=== PATIENT | male | born 1950 | race Caucasian/White ===

== ENCOUNTER → 2018-03-09 | Outpatient (CLI) | payer MEDICARE, BC ==
[~2018-03-09] VITALS: Ht 162.6 cm; Wt 74.1 kg
[~2018-03-09] MED LIST: NAPROSYN500 M1 PO; ZESTORETIC 25 M1 TAB PO
[2018-03-09 08:10] VITALS: BP 153/80
[2018-03-09 08:20] LABS: ALBUMIN 4.6 g/dL (3.5-5.0); POTASSIUM 4.3 mmol/L (3.6-5.0); TOTAL BILIRUBIN 1.4 mg/dL (0.2-1.3); TOTAL PROTEIN 7.5 g/dL (6.3-8.2)
== END ==
LOC: LAB 07:52
PROVIDERS: Family Medicine
DX: Z00.00 Encounter for general adult medical examination without abnormal findings (principal); Z12.5 Encounter for screening for malignant neoplasm of prostate; Z12.12 Encounter for screening for malignant neoplasm of rectum; Z23 Encounter for immunization; I10 Essential (primary) hypertension; R73.02 Impaired glucose tolerance (oral); H61.23 Impacted cerumen, bilateral; Z80.0 Family history of malignant neoplasm of digestive organs; Z87.891 Personal history of nicotine dependence

== ENCOUNTER → 2018-03-20 | Outpatient (CLI) | payer MEDICARE, BC ==
[2018-03-09 08:10] VITALS: BP 153/80
[2018-03-20 20:21] LABS: DIRECT BILIRUBIN 0.4 mg/dL (0.0-0.4); TOTAL BILIRUBIN 1.1 mg/dL (0.2-1.3)
== END ==
LOC: LAB 17:10
PROVIDERS: Family Medicine
DX: E80.6 Other disorders of bilirubin metabolism (principal)

== ENCOUNTER → 2018-03-31 | Outpatient (CLI) | payer MEDICARE, BC ==
[2018-03-09 08:10] VITALS: BP 153/80
== END ==
LOC: CARDREHAB 07:39 → CARDLAB 12:05
DX: I10 Essential (primary) hypertension (principal)
CPT/HCPCS: A9500

== ENCOUNTER 2018-08-04 08:15 | Emergency (ER) | payer MEDICARE, BC ==
[~2018-08-04 08:15] MED LIST changes: +CEPHALEXIN500 M2 PO; +FISH OIL CONCE1 EACH PO
[2018-08-04 09:11] VITALS: BP 144/93
== END 2018-08-04 08:50 | disposition home or self-care (01) ==
LOC: ED 08:15
DX: S69.92XD Unspecified injury of left wrist, hand and finger(s), subsequent encounter (principal)

== ENCOUNTER → 2018-12-12 | Outpatient (CLI) | payer MEDICARE, BC | LOC: LAB 09:10 | DX: R97.20 Elevated prostate specific antigen [PSA] (principal) ==

== ENCOUNTER → 2019-05-24 | Outpatient (CLI) | payer MEDICARE, BC ==
[2019-05-24 07:20] LABS: ALBUMIN 4.4 g/dL (3.4-4.8); POTASSIUM 4.1 mmol/L (3.5-5.1)
[2019-05-24 07:22] LABS: CALCIUM 9.9 mg/dL (8.3-10.5)
[2019-05-24 07:23] LABS: TOTAL PROTEIN 7.2 g/dL (6.2-8.1)
[2019-05-24 07:25] LABS: TOTAL BILIRUBIN 0.9 mg/dL (0.2-1.2)
== END ==
LOC: LAB 07:01
PROVIDERS: Family Medicine
DX: E78.5 Hyperlipidemia, unspecified (principal); I10 Essential (primary) hypertension; R97.20 Elevated prostate specific antigen [PSA]

== ENCOUNTER → 2019-05-30 | Outpatient (CLI) | payer MEDICARE, BC | LOC: LAB 15:45 | DX: Z00.00 Encounter for general adult medical examination without abnormal findings (principal); Z23 Encounter for immunization; I10 Essential (primary) hypertension; H61.21 Impacted cerumen, right ear; D22.5 Melanocytic nevi of trunk; R73.02 Impaired glucose tolerance (oral) ==

== ENCOUNTER → 2020-06-06 | Outpatient (CLI) | payer MEDICARE, BC ==
[2020-06-06 08:34] LABS: POTASSIUM 3.9 mmol/L (3.5-5.1)
[2020-06-06 08:35] LABS: ALBUMIN 4.3 g/dL (3.4-4.8)
[2020-06-06 08:36] LABS: CALCIUM 9.4 mg/dL (8.3-10.5)
[2020-06-06 08:37] LABS: TOTAL PROTEIN 7.1 g/dL (6.2-8.1)
[2020-06-06 08:39] LABS: TOTAL BILIRUBIN 1.1 mg/dL (0.2-1.2)
== END ==
LOC: LAB 08:03
PROVIDERS: Family Medicine
DX: E78.00 Pure hypercholesterolemia, unspecified (principal); R73.03 Prediabetes; I10 Essential (primary) hypertension

== ENCOUNTER → 2020-06-13 | Outpatient (CLI) | payer MEDICARE, BC | LOC: LAB 09:28 | DX: Z00.00 Encounter for general adult medical examination without abnormal findings (principal) ==

== ENCOUNTER → 2020-08-11 | Day surgery (SDC) | payer MEDICARE, BC | END | disposition home or self-care (01) | LOC: MSO 07:18 | DX: D12.2 Benign neoplasm of ascending colon (principal); D12.3 Benign neoplasm of transverse colon; I10 Essential (primary) hypertension; Z79.899 Other long term (current) drug therapy; Z79.82 Long term (current) use of aspirin | CPT/HCPCS: 00811; J2704; J7120 ==

== ENCOUNTER → 2020-08-18 | Outpatient (CLI) | payer MEDICARE, BC ==
[2020-08-18 11:37] LABS: MEAN PLATELET VOLUME 9.9 fl (7.4-10.4); RED BLOOD COUNT 4.64 M/mm3 (4.20-5.60); RED CELL DISTRIBUTION WIDTH 12.6 % (11.5-14.5); WHITE BLOOD COUNT 6.8 K/mm3 (4.8-10.8)
[2020-08-18 11:47] LABS: ALBUMIN 4.3 g/dL (3.4-4.8)
[2020-08-18 11:49] LABS: CALCIUM 9.9 mg/dL (8.3-10.5)
[2020-08-18 11:50] LABS: TOTAL PROTEIN 7.5 g/dL (6.2-8.1)
[2020-08-18 11:52] LABS: TOTAL BILIRUBIN 0.9 mg/dL (0.2-1.2)
== END ==
LOC: LAB 11:17
PROVIDERS: Surgery
DX: K63.89 Other specified diseases of intestine (principal)

== ENCOUNTER → 2020-08-19 | Outpatient (CLI) | payer MEDICARE, BC | LOC: RAD 09:47 | DX: K63.89 Other specified diseases of intestine (principal); N40.1 Benign prostatic hyperplasia with lower urinary tract symptoms; N32.0 Bladder-neck obstruction | CPT/HCPCS: Q9967 ==

== ENCOUNTER → 2020-10-01 | Outpatient (CLI) | payer MEDICARE, BC ==
[2020-10-01 08:16] LABS: MEAN PLATELET VOLUME 8.8 fl (7.4-10.4); RED BLOOD COUNT 2.75 M/mm3 (4.20-5.60); RED CELL DISTRIBUTION WIDTH 13.9 % (11.5-14.5)
[2020-10-01 08:38] LABS: POTASSIUM 4.8 mmol/L (3.5-5.1)
[2020-10-01 08:39] LABS: CALCIUM 9.1 mg/dL (8.3-10.5)
== END ==
LOC: LAB 08:02
PROVIDERS: Family Medicine
DX: D50.0 Iron deficiency anemia secondary to blood loss (chronic) (principal); N28.9 Disorder of kidney and ureter, unspecified

== ENCOUNTER → 2020-10-28 | Outpatient (CLI) | payer MEDICARE, BC ==
[2020-10-28 14:27] LABS: HEMATOCRIT 42.1 % (42.0-52.0); HEMOGLOBIN 13.8 g/dL (13.5-18.0); MEAN PLATELET VOLUME 9.6 fl (7.4-10.4); RED BLOOD COUNT 4.2 M/mm3 (4.20-5.60); RED CELL DISTRIBUTION WIDTH 13.3 % (11.5-14.5)
== END ==
LOC: LAB 14:15
PROVIDERS: Family Medicine
DX: D50.0 Iron deficiency anemia secondary to blood loss (chronic) (principal)

== ENCOUNTER → 2021-01-01 | Outpatient (CLI) | payer MEDICARE, BC | LOC: LAB 09:10 | DX: R97.20 Elevated prostate specific antigen [PSA] (principal); R39.12 Poor urinary stream ==

== ENCOUNTER → 2021-01-27 | Outpatient (CLI) | payer MEDICARE, BC ==
[2021-01-27 09:13] LABS: HEMATOCRIT 42.9 % (42.0-52.0); HEMOGLOBIN 14.2 g/dL (13.5-18.0); RED BLOOD COUNT 4.44 M/mm3 (4.20-5.60); WHITE BLOOD COUNT 7.7 K/mm3 (4.8-10.8)
== END ==
LOC: LAB 08:57
PROVIDERS: Family Medicine
DX: Z86.2 Personal history of diseases of the blood and blood-forming organs and certain disorders involving the immune mechanism (principal)

== ENCOUNTER → 2021-02-09 | Outpatient (CLI) | payer MEDICARE, BC ==
[2021-02-09 09:50] LABS: HEMATOCRIT 45.9 % (42.0-52.0); HEMOGLOBIN 15.1 g/dL (13.5-18.0); MEAN PLATELET VOLUME 10.2 fl (7.4-10.4); RED BLOOD COUNT 4.74 M/mm3 (4.20-5.60); RED CELL DISTRIBUTION WIDTH 12.9 % (11.5-14.5); WHITE BLOOD COUNT 6.5 K/mm3 (4.8-10.8)
== END ==
LOC: LAB 09:32
PROVIDERS: Family Medicine
DX: Z86.2 Personal history of diseases of the blood and blood-forming organs and certain disorders involving the immune mechanism (principal)

== ENCOUNTER → 2021-02-12 | Outpatient (CLI) | payer MEDICARE, BC ==
[2021-02-12 10:13] LABS: POTASSIUM 4.7 mmol/L (3.5-5.1)
[2021-02-12 10:14] LABS: CALCIUM 9.8 mg/dL (8.3-10.5)
== END ==
LOC: LAB 09:41
PROVIDERS: Family Medicine
DX: I10 Essential (primary) hypertension (principal)

== ENCOUNTER → 2021-08-18 | Outpatient (CLI) | payer MEDICARE, BC ==
[2021-08-18 08:22] LABS: BASO # 0.03 K/mm3 (0.02-0.10); EOS % 2.1 % (0.0-4.0); HEMATOCRIT 44.6 % (42.0-52.0); HEMOGLOBIN 14.8 g/dL (13.5-18.0); LYMPH# 1.97 K/mm3 (1.50-4.00); MEAN CELL VOLUME 100 fl (78-100); MEAN CORPUSCULAR HEMOGLOBIN 33 pg (27-31); MEAN CORPUSCULAR HGB CONC 33 g/dL (33-37); MEAN PLATELET VOLUME 10.6 fl (7.4-10.4); MONO # 0.57 K/mm3 (0.20-0.80); NEU # 2.09 K/mm3 (1.40-6.50); PLATELET COUNT 238 K/mm3 (130-400); RED BLOOD COUNT 4.45 M/mm3 (4.20-5.60); RED CELL DISTRIBUTION WIDTH 12.3 % (11.5-14.5); WHITE BLOOD COUNT 4.8 K/mm3 (4.8-10.8)
[2021-08-18 08:23] LABS: ALBUMIN 4.2 g/dL (3.4-4.8); CALCIUM 10.1 mg/dL (8.3-10.5); POTASSIUM 5.2 mmol/L (3.5-5.1); TOTAL BILIRUBIN 0.9 mg/dL (0.2-1.2); TOTAL PROTEIN 7.3 g/dL (6.2-8.1)
== END ==
LOC: LAB 07:31
PROVIDERS: Family Medicine
DX: Z00.00 Encounter for general adult medical examination without abnormal findings (principal); Z13.6 Encounter for screening for cardiovascular disorders; C18.7 Malignant neoplasm of sigmoid colon; R73.03 Prediabetes; I10 Essential (primary) hypertension; E78.00 Pure hypercholesterolemia, unspecified

== ENCOUNTER → 2021-12-14 | Outpatient (CLI) | payer MEDICARE, BC ==
[2021-12-14 11:16] LABS: ALBUMIN 4.4 g/dL (3.4-4.8)
[2021-12-14 11:17] LABS: POTASSIUM 4.5 mmol/L (3.5-5.1)
[2021-12-14 11:19] LABS: TOTAL PROTEIN 7.4 g/dL (6.2-8.1)
[2021-12-14 11:21] LABS: TOTAL BILIRUBIN 1.3 mg/dL (0.2-1.2)
== END ==
LOC: LAB 10:39
PROVIDERS: Nurse Practitioner Family
DX: U07.1 COVID-19 (principal)

== ENCOUNTER → 2022-02-17 | Outpatient (CLI) | payer MEDICARE, BC ==
[2022-02-17 09:24] LABS: ALBUMIN 4.3 g/dL (3.4-4.8); POTASSIUM 4.6 mmol/L (3.5-5.1)
[2022-02-17 09:25] LABS: CALCIUM 9.8 mg/dL (8.3-10.5)
[2022-02-17 09:26] LABS: TOTAL PROTEIN 7.4 g/dL (6.2-8.1)
[2022-02-17 09:28] LABS: TOTAL BILIRUBIN 1.8 mg/dL (0.2-1.2)
== END ==
LOC: LAB 09:00
PROVIDERS: Family Medicine
DX: E78.00 Pure hypercholesterolemia, unspecified (principal); E80.6 Other disorders of bilirubin metabolism; R97.20 Elevated prostate specific antigen [PSA]; I10 Essential (primary) hypertension; R73.03 Prediabetes

== ENCOUNTER → 2023-02-18 | Outpatient (CLI) | payer MEDICARE, BC ==
[2023-02-18 08:19] LABS: HEMATOCRIT 44.2 % (42.0-52.0); HEMOGLOBIN 14.8 g/dL (13.5-18.0); MEAN PLATELET VOLUME 9.7 fl (7.4-10.4); RED BLOOD COUNT 4.56 M/mm3 (4.20-5.60); RED CELL DISTRIBUTION WIDTH 12.3 % (11.5-14.5); WHITE BLOOD COUNT 7.2 K/mm3 (4.8-10.8)
[2023-02-18 08:33] LABS: ALBUMIN 4.4 g/dL (3.4-4.8)
[2023-02-18 08:34] LABS: CALCIUM 9.9 mg/dL (8.3-10.5)
[2023-02-18 08:35] LABS: TOTAL PROTEIN 7.6 g/dL (6.2-8.1)
[2023-02-18 08:37] LABS: TOTAL BILIRUBIN 1.5 mg/dL (0.2-1.2)
== END ==
LOC: LAB 08:08
PROVIDERS: Family Medicine
DX: Z00.00 Encounter for general adult medical examination without abnormal findings (principal); Z12.5 Encounter for screening for malignant neoplasm of prostate; Z13.220 Encounter for screening for lipoid disorders; Z13.1 Encounter for screening for diabetes mellitus; I10 Essential (primary) hypertension; N40.0 Benign prostatic hyperplasia without lower urinary tract symptoms; L82.1 Other seborrheic keratosis

== ENCOUNTER → 2023-05-25 | Outpatient (CLI) | payer MEDICARE, BC ==
[2023-05-25 09:09] LABS: CALCIUM 9.6 mg/dL (8.3-10.5)
== END ==
LOC: LAB 08:49
PROVIDERS: Family Medicine
DX: I10 Essential (primary) hypertension (principal)

== ENCOUNTER → 2023-07-14 | Outpatient (CLI) | payer MEDICARE, BC ==
[2023-07-14 14:15] LABS: BASO # 0.02 K/mm3 (0.02-0.10); EOS # 0.03 K/mm3 (0.04-0.40); EOS % 0.2 % (0.0-4.0); HEMATOCRIT 37.3 % (42.0-52.0); HEMOGLOBIN 11.9 g/dL (13.5-18.0); LYMPH# 1.08 K/mm3 (1.50-4.00); MEAN CELL VOLUME 94 fl (78-100); MEAN CORPUSCULAR HEMOGLOBIN 30 pg (27-31); MEAN CORPUSCULAR HGB CONC 32 g/dL (33-37); MEAN PLATELET VOLUME 9.4 fl (7.4-10.4); MONO # 1.42 K/mm3 (0.20-0.80); NEU # 9.72 K/mm3 (1.40-6.50); PLATELET COUNT 388 K/mm3 (130-400); RED BLOOD COUNT 3.99 M/mm3 (4.20-5.60); RED CELL DISTRIBUTION WIDTH 13.5 % (11.5-14.5); WHITE BLOOD COUNT 12.3 K/mm3 (4.8-10.8)
[2023-07-14 14:19] LABS: ALBUMIN 3.6 g/dL (3.4-4.8)
[2023-07-14 14:20] LABS: CALCIUM 12.5 mg/dL (8.3-10.5)
[2023-07-14 14:21] LABS: TOTAL PROTEIN 6.7 g/dL (6.2-8.1)
[2023-07-14 14:23] LABS: TOTAL BILIRUBIN 0.9 mg/dL (0.2-1.2)
== END ==
LOC: LAB 13:55
PROVIDERS: Family Medicine
DX: I10 Essential (primary) hypertension (principal); R73.03 Prediabetes

== ENCOUNTER → 2023-07-15 | Outpatient (CLI) | payer MEDICARE, BC ==
[2023-07-15 09:45] LABS: ALBUMIN 3.3 g/dL (3.4-4.8)
[2023-07-15 09:47] LABS: CALCIUM 11.7 mg/dL (8.3-10.5)
[2023-07-15 09:48] LABS: TOTAL PROTEIN 6.4 g/dL (6.2-8.1)
[2023-07-15 09:50] LABS: TOTAL BILIRUBIN 0.9 mg/dL (0.2-1.2)
[2023-07-16 00:26] LABS: PTH,INTACT 7.8 pg/mL (6.6-88.9)
[2023-07-16 00:42] LABS: CALCIUM, IONIZED, SERUM 1.47 mmol/L (1.19-1.41)
== END ==
LOC: LAB 08:47
PROVIDERS: Family Medicine
DX: E83.52 Hypercalcemia (principal)

== ENCOUNTER → 2023-07-18 | Outpatient (CLI) | payer MEDICARE, BC ==
[2023-07-18 23:59] LABS: PTH,INTACT 7.7 pg/mL (6.6-88.9)
== END ==
LOC: LAB 10:30
PROVIDERS: Family Medicine
DX: E83.52 Hypercalcemia (principal)

== ENCOUNTER → 2023-09-01 | Outpatient (CLI) | payer MEDICARE, BC ==
[2023-09-01 14:26] LABS: BASO # 0.01 K/mm3 (0.02-0.10); HEMATOCRIT 35.9 % (42.0-52.0); HEMOGLOBIN 11.1 g/dL (13.5-18.0); LYMPH# 0.61 K/mm3 (1.50-4.00); MEAN CELL VOLUME 94 fl (78-100); MEAN CORPUSCULAR HEMOGLOBIN 29 pg (27-31); MEAN CORPUSCULAR HGB CONC 31 g/dL (33-37); MEAN PLATELET VOLUME 9.7 fl (7.4-10.4); MONO # 0.96 K/mm3 (0.20-0.80); PLATELET COUNT 462 K/mm3 (130-400); RED BLOOD COUNT 3.84 M/mm3 (4.20-5.60); RED CELL DISTRIBUTION WIDTH 15.1 % (11.5-14.5); WHITE BLOOD COUNT 14.6 K/mm3 (4.8-10.8)
[2023-09-01 14:30] LABS: ALBUMIN 3.1 g/dL (3.4-4.8); TOTAL PROTEIN 6.1 g/dL (6.2-8.1)
[2023-09-01 14:48] LABS: CALCIUM 13.6 mg/dL (8.3-10.5)
== END ==
LOC: LAB 12:03
PROVIDERS: Internal Medicine
DX: C81.99 Hodgkin lymphoma, unspecified, extranodal and solid organ sites (principal)

== ENCOUNTER → 2023-09-13 | Outpatient (CLI) | payer MEDICARE, BC ==
[2023-11-03 09:43] LABS: HEMATOCRIT 29.3 % (42.0-52.0); HEMOGLOBIN 9.4 g/dL (13.5-18.0); MEAN CELL VOLUME 92 fl (78-100); MEAN CORPUSCULAR HEMOGLOBIN 29 pg (27-31); MEAN CORPUSCULAR HGB CONC 32 g/dL (33-37); MEAN PLATELET VOLUME 10.7 fl (7.4-10.4); PLATELET COUNT 180 K/mm3 (130-400); RED CELL DISTRIBUTION WIDTH 16.2 % (11.5-14.5); WHITE BLOOD COUNT 17.6 K/mm3 (4.8-10.8)
[2023-11-03 09:46] LABS: LYMPHOCYTE 4 % (20-51); MONOCYTE 3 % (3-10); NEUTROPHILS 93 % (42-75)
[2023-11-03 09:55] LABS: ALBUMIN 2.5 g/dL (3.4-4.8); CALCIUM 10.6 mg/dL (8.3-10.5); TOTAL BILIRUBIN 1.3 mg/dL (0.2-1.2); TOTAL PROTEIN 4.6 g/dL (6.2-8.1)
== END ==
LOC: LAB 08:00
PROVIDERS: Internal Medicine
DX: C81.99 Hodgkin lymphoma, unspecified, extranodal and solid organ sites (principal)

== ENCOUNTER → 2023-09-20 | Outpatient (CLI) | payer MEDICARE, BC ==
[2023-11-09 13:16] LABS: ALBUMIN 2.8 g/dL (3.4-4.8); CALCIUM 12.1 mg/dL (8.3-10.5); TOTAL BILIRUBIN 1.1 mg/dL (0.2-1.2); TOTAL PROTEIN 4.9 g/dL (6.2-8.1)
[2023-11-09 13:18] LABS: BASO # 0.02 K/mm3 (0.02-0.10); EOS # 0.05 K/mm3 (0.04-0.40); EOS % 1.1 % (0.0-4.0); HEMATOCRIT 29.1 % (42.0-52.0); HEMOGLOBIN 9.1 g/dL (13.5-18.0); MEAN CELL VOLUME 94 fl (78-100); MEAN CORPUSCULAR HEMOGLOBIN 29 pg (27-31); MEAN CORPUSCULAR HGB CONC 31 g/dL (33-37); MEAN PLATELET VOLUME 9.9 fl (7.4-10.4); MONO # 0.42 K/mm3 (0.20-0.80); NEU # 3.27 K/mm3 (1.40-6.50); PLATELET COUNT 233 K/mm3 (130-400); RED BLOOD COUNT 3.11 M/mm3 (4.20-5.60); WHITE BLOOD COUNT 4.8 K/mm3 (4.8-10.8)
== END ==
LOC: LAB 14:30
PROVIDERS: Internal Medicine
DX: C81.99 Hodgkin lymphoma, unspecified, extranodal and solid organ sites (principal)

== ENCOUNTER 2023-09-25 14:14 | Emergency (ER) | payer MEDICARE, BC ==
[~2023-09-25 14:14] MED LIST changes: +Polyethylene Glycol 3350 Powder 17 GM PACKET PO ONE
[2023-11-13 18:10] LABS: HEMATOCRIT 26.3 % (42.0-52.0); HEMOGLOBIN 8.4 g/dL (13.5-18.0); MEAN CELL VOLUME 91 fl (78-100); MEAN CORPUSCULAR HEMOGLOBIN 29 pg (27-31); MEAN CORPUSCULAR HGB CONC 32 g/dL (33-37); MEAN PLATELET VOLUME 9.7 fl (7.4-10.4); PLATELET COUNT 317 K/mm3 (130-400); RED BLOOD COUNT 2.88 M/mm3 (4.20-5.60); RED CELL DISTRIBUTION WIDTH 15.3 % (11.5-14.5); WHITE BLOOD COUNT 2.3 K/mm3 (4.8-10.8)
[2023-11-13 18:20] LABS: BAND 1 % (0-10); LYMPHOCYTE 23 % (20-51); MONOCYTE 12 % (3-10); NEUTROPHILS 62 % (42-75)
== END 2023-09-25 16:58 | disposition home or self-care (01) ==
LOC: ED 14:14
PROVIDERS: Physician Assistant
DX: K59.00 Constipation, unspecified (principal)
CPT/HCPCS: J1644

== ENCOUNTER → 2023-09-26 | Outpatient (CLI) | payer MEDICARE, BC ==
[~2023-09-26] MED LIST changes: -Polyethylene Glycol 3350 Powder 17 GM PACKET PO ONE
[2023-11-14 01:31] LABS: ALBUMIN 3.1 g/dL (3.4-4.8); CALCIUM 10.1 mg/dL (8.3-10.5); TOTAL BILIRUBIN 1.1 mg/dL (0.2-1.2); TOTAL PROTEIN 5.3 g/dL (6.2-8.1)
[2023-11-14 01:32] LABS: HEMATOCRIT 28.3 % (42.0-52.0); HEMOGLOBIN 9.1 g/dL (13.5-18.0); MEAN CELL VOLUME 91 fl (78-100); MEAN CORPUSCULAR HEMOGLOBIN 29 pg (27-31); MEAN CORPUSCULAR HGB CONC 32 g/dL (33-37); MEAN PLATELET VOLUME 9.2 fl (7.4-10.4); PLATELET COUNT 338 K/mm3 (130-400); RED BLOOD COUNT 3.11 M/mm3 (4.20-5.60); RED CELL DISTRIBUTION WIDTH 15.5 % (11.5-14.5)
[2023-11-14 01:33] LABS: WHITE BLOOD COUNT 1.8 K/mm3 (4.8-10.8)
[2023-11-14 01:35] LABS: BAND 7 % (0-10); LYMPHOCYTE 29 % (20-51); MONOCYTE 25 % (3-10); NEUTROPHILS 34 % (42-75)
[2023-11-14 01:36] LABS: HYPOCHROMIA 1+; METAMYELOCYTE 1 % (0-0)
[2023-11-14 01:37] LABS: OVALOCYTES 1+
[2023-11-14 01:38] LABS: SCHISTOCYTES 1+
== END ==
LOC: LAB 12:07
PROVIDERS: Internal Medicine
DX: C81.99 Hodgkin lymphoma, unspecified, extranodal and solid organ sites (principal)

== ENCOUNTER → 2023-10-03 | Outpatient (CLI) | payer MEDICARE, BC ==
[2023-11-23 11:38] LABS: ALBUMIN 2.9 g/dL (3.4-4.8); CALCIUM 9.3 mg/dL (8.3-10.5); TOTAL BILIRUBIN 0.8 mg/dL (0.2-1.2); TOTAL PROTEIN 5.2 g/dL (6.2-8.1)
[2023-11-23 11:43] LABS: BASO # 0.06 K/mm3 (0.02-0.10); HEMATOCRIT 30.7 % (42.0-52.0); HEMOGLOBIN 9.9 g/dL (13.5-18.0); LYMPH# 1.48 K/mm3 (1.50-4.00); MEAN CELL VOLUME 92 fl (78-100); MEAN CORPUSCULAR HEMOGLOBIN 30 pg (27-31); MEAN CORPUSCULAR HGB CONC 32 g/dL (33-37); MEAN PLATELET VOLUME 8.9 fl (7.4-10.4); MONO # 0.92 K/mm3 (0.20-0.80); NEU # 2.05 K/mm3 (1.40-6.50); PLATELET COUNT 458 K/mm3 (130-400); RED BLOOD COUNT 3.34 M/mm3 (4.20-5.60); RED CELL DISTRIBUTION WIDTH 16.8 % (11.5-14.5); WHITE BLOOD COUNT 4.6 K/mm3 (4.8-10.8)
== END ==
LOC: LAB 16:04
PROVIDERS: Internal Medicine
DX: C81.99 Hodgkin lymphoma, unspecified, extranodal and solid organ sites (principal)

== ENCOUNTER → 2023-10-11 | Outpatient (CLI) | payer MEDICARE, BC ==
[2023-10-11 14:36] LABS: BASO # 0.05 K/mm3 (0.02-0.10); EOS # 0.01 K/mm3 (0.04-0.40); EOS % 0.1 % (0.0-4.0); HEMATOCRIT 30.3 % (42.0-52.0); HEMOGLOBIN 9.6 g/dL (13.5-18.0); LYMPH# 1.64 K/mm3 (1.50-4.00); MEAN CELL VOLUME 96 fl (78-100); MEAN CORPUSCULAR HEMOGLOBIN 30 pg (27-31); MEAN CORPUSCULAR HGB CONC 32 g/dL (33-37); MEAN PLATELET VOLUME 9.2 fl (7.4-10.4); MONO # 1.01 K/mm3 (0.20-0.80); NEU # 4.15 K/mm3 (1.40-6.50); PLATELET COUNT 320 K/mm3 (130-400); RED BLOOD COUNT 3.17 M/mm3 (4.20-5.60); RED CELL DISTRIBUTION WIDTH 18.8 % (11.5-14.5); WHITE BLOOD COUNT 6.9 K/mm3 (4.8-10.8)
[2023-10-11 14:40] LABS: ALBUMIN 2.9 g/dL (3.4-4.8)
[2023-10-11 14:42] LABS: CALCIUM 8.4 mg/dL (8.3-10.5)
[2023-10-11 14:43] LABS: TOTAL PROTEIN 5.1 g/dL (6.2-8.1)
[2023-10-11 14:44] LABS: TOTAL BILIRUBIN 0.5 mg/dL (0.2-1.2)
== END ==
LOC: LAB 14:20
PROVIDERS: Internal Medicine
DX: C81.99 Hodgkin lymphoma, unspecified, extranodal and solid organ sites (principal)

== ENCOUNTER → 2023-10-18 | Outpatient (CLI) | payer MEDICARE, BC ==
[2023-10-18 15:43] LABS: BASO # 0.04 K/mm3 (0.02-0.10); EOS # 0.08 K/mm3 (0.04-0.40); EOS % 1.6 % (0.0-4.0); HEMATOCRIT 28.5 % (42.0-52.0); LYMPH# 1.52 K/mm3 (1.50-4.00); MEAN CELL VOLUME 97 fl (78-100); MEAN CORPUSCULAR HEMOGLOBIN 31 pg (27-31); MEAN CORPUSCULAR HGB CONC 32 g/dL (33-37); MEAN PLATELET VOLUME 9.8 fl (7.4-10.4); MONO # 0.59 K/mm3 (0.20-0.80); NEU # 2.64 K/mm3 (1.40-6.50); PLATELET COUNT 257 K/mm3 (130-400); RED BLOOD COUNT 2.93 M/mm3 (4.20-5.60); RED CELL DISTRIBUTION WIDTH 19.9 % (11.5-14.5); WHITE BLOOD COUNT 4.9 K/mm3 (4.8-10.8)
[2023-10-18 15:49] LABS: ALBUMIN 3.1 g/dL (3.4-4.8)
[2023-10-18 15:50] LABS: CALCIUM 8.5 mg/dL (8.3-10.5)
[2023-10-18 15:51] LABS: TOTAL PROTEIN 5.4 g/dL (6.2-8.1)
[2023-10-18 15:53] LABS: TOTAL BILIRUBIN 0.5 mg/dL (0.2-1.2)
== END ==
LOC: LAB 15:28
PROVIDERS: Internal Medicine
DX: C81.99 Hodgkin lymphoma, unspecified, extranodal and solid organ sites (principal)

== ENCOUNTER → 2023-10-25 | Outpatient (CLI) | payer MEDICARE, BC ==
[2023-10-25 14:08] LABS: BASO # 0.02 K/mm3 (0.02-0.10); EOS % 2.3 % (0.0-4.0); HEMATOCRIT 31.8 % (42.0-52.0); HEMOGLOBIN 10.1 g/dL (13.5-18.0); LYMPH# 1.53 K/mm3 (1.50-4.00); MEAN CELL VOLUME 99 fl (78-100); MEAN CORPUSCULAR HEMOGLOBIN 31 pg (27-31); MEAN CORPUSCULAR HGB CONC 32 g/dL (33-37); MEAN PLATELET VOLUME 9.6 fl (7.4-10.4); MONO # 0.51 K/mm3 (0.20-0.80); NEU # 2.17 K/mm3 (1.40-6.50); PLATELET COUNT 255 K/mm3 (130-400); RED BLOOD COUNT 3.22 M/mm3 (4.20-5.60); RED CELL DISTRIBUTION WIDTH 20.4 % (11.5-14.5); WHITE BLOOD COUNT 4.3 K/mm3 (4.8-10.8)
[2023-10-25 14:16] LABS: ALBUMIN 3.3 g/dL (3.4-4.8)
[2023-10-25 14:18] LABS: CALCIUM 8.7 mg/dL (8.3-10.5)
[2023-10-25 14:19] LABS: TOTAL PROTEIN 5.6 g/dL (6.2-8.1)
[2023-10-25 14:21] LABS: TOTAL BILIRUBIN 0.5 mg/dL (0.2-1.2)
== END ==
LOC: LAB 13:53
PROVIDERS: Internal Medicine
DX: C81.99 Hodgkin lymphoma, unspecified, extranodal and solid organ sites (principal)

== ENCOUNTER → 2023-11-01 | Outpatient (CLI) | payer MEDICARE, BC ==
[2023-11-01 12:31] LABS: BASO # 0.02 K/mm3 (0.02-0.10); EOS # 0.01 K/mm3 (0.04-0.40); EOS % 0.2 % (0.0-4.0); HEMATOCRIT 31.3 % (42.0-52.0); HEMOGLOBIN 10.1 g/dL (13.5-18.0); LYMPH# 1.54 K/mm3 (1.50-4.00); MEAN CELL VOLUME 99 fl (78-100); MEAN CORPUSCULAR HEMOGLOBIN 32 pg (27-31); MEAN CORPUSCULAR HGB CONC 32 g/dL (33-37); MEAN PLATELET VOLUME 10.1 fl (7.4-10.4); MONO # 0.09 K/mm3 (0.20-0.80); NEU # 3.66 K/mm3 (1.40-6.50); PLATELET COUNT 171 K/mm3 (130-400); RED BLOOD COUNT 3.16 M/mm3 (4.20-5.60); RED CELL DISTRIBUTION WIDTH 18.7 % (11.5-14.5); WHITE BLOOD COUNT 5.3 K/mm3 (4.8-10.8)
[2023-11-01 12:37] LABS: ALBUMIN 3.4 g/dL (3.4-4.8)
[2023-11-01 12:38] LABS: CALCIUM 9.1 mg/dL (8.3-10.5)
[2023-11-01 12:39] LABS: TOTAL PROTEIN 5.6 g/dL (6.2-8.1)
[2023-11-01 12:41] LABS: TOTAL BILIRUBIN 0.9 mg/dL (0.2-1.2)
== END ==
LOC: LAB 12:22
PROVIDERS: Internal Medicine
DX: C81.99 Hodgkin lymphoma, unspecified, extranodal and solid organ sites (principal)

== ENCOUNTER → 2023-11-08 | Outpatient (CLI) | payer MEDICARE, BC ==
[2023-11-08 11:33] LABS: ALBUMIN 3.7 g/dL (3.4-4.8)
[2023-11-08 11:35] LABS: CALCIUM 9.5 mg/dL (8.3-10.5)
[2023-11-08 11:36] LABS: TOTAL PROTEIN 5.8 g/dL (6.2-8.1)
[2023-11-08 11:37] LABS: HEMATOCRIT 30.7 % (42.0-52.0); MEAN CELL VOLUME 99 fl (78-100); MEAN CORPUSCULAR HEMOGLOBIN 32 pg (27-31); MEAN CORPUSCULAR HGB CONC 33 g/dL (33-37); PLATELET COUNT 246 K/mm3 (130-400); RED CELL DISTRIBUTION WIDTH 18.2 % (11.5-14.5)
[2023-11-08 11:38] LABS: TOTAL BILIRUBIN 0.4 mg/dL (0.2-1.2)
[2023-11-08 12:06] LABS: HYPOCHROMIA 2+; MONOCYTE 8 % (3-10); NEUTROPHILS 27 % (42-75); OVALOCYTES 1+; SCHISTOCYTES 1+
[2023-11-08 12:07] LABS: LYMPHOCYTE 63 % (20-51)
== END ==
LOC: LAB 11:11
PROVIDERS: Internal Medicine
DX: C81.99 Hodgkin lymphoma, unspecified, extranodal and solid organ sites (principal)

== ENCOUNTER → 2023-11-23 | Outpatient (CLI) | payer MEDICARE, BC ==
[2023-11-23 13:37] LABS: HEMATOCRIT 31.6 % (42.0-52.0); HEMOGLOBIN 10.2 g/dL (13.5-18.0); MEAN CELL VOLUME 101 fl (78-100); MEAN CORPUSCULAR HEMOGLOBIN 33 pg (27-31); MEAN CORPUSCULAR HGB CONC 32 g/dL (33-37); MEAN PLATELET VOLUME 9.8 fl (7.4-10.4); PLATELET COUNT 298 K/mm3 (130-400); RED BLOOD COUNT 3.14 M/mm3 (4.20-5.60); RED CELL DISTRIBUTION WIDTH 15.9 % (11.5-14.5); WHITE BLOOD COUNT 2.6 K/mm3 (4.8-10.8)
[2023-11-23 13:42] LABS: ALBUMIN 3.7 g/dL (3.4-4.8)
[2023-11-23 13:44] LABS: CALCIUM 10.7 mg/dL (8.3-10.5)
[2023-11-23 13:47] LABS: TOTAL BILIRUBIN 0.7 mg/dL (0.2-1.2)
[2023-11-23 14:07] LABS: BAND 5 % (0-10); MONOCYTE 10 % (3-10)
[2023-11-23 14:08] LABS: BASO # 0.07 K/mm3 (0.02-0.10); EOS # 0.02 K/mm3 (0.04-0.40); EOS % 0.8 % (0.0-4.0); LYMPH# 1.43 K/mm3 (1.50-4.00); LYMPHOCYTE 54 % (20-51); MONO # 0.14 K/mm3 (0.20-0.80); NEU # 0.89 K/mm3 (1.40-6.50); NEUTROPHILS 31 % (42-75)
[2023-11-23 14:09] LABS: HYPOCHROMIA 1+; SCHISTOCYTES 1+
[2023-11-23 14:11] LABS: OVALOCYTES 1+
== END ==
LOC: LAB 13:27
PROVIDERS: Internal Medicine
DX: C81.99 Hodgkin lymphoma, unspecified, extranodal and solid organ sites (principal)

== ENCOUNTER → 2023-11-30 | Outpatient (CLI) | payer MEDICARE, BC ==
[2023-11-30 13:50] LABS: BASO # 0.09 K/mm3 (0.02-0.10); HEMATOCRIT 31.9 % (42.0-52.0); HEMOGLOBIN 10.6 g/dL (13.5-18.0); MEAN CELL VOLUME 99 fl (78-100); MEAN CORPUSCULAR HEMOGLOBIN 33 pg (27-31); MEAN CORPUSCULAR HGB CONC 33 g/dL (33-37); MEAN PLATELET VOLUME 10.2 fl (7.4-10.4); MONO # 0.59 K/mm3 (0.20-0.80); NEU # 2.69 K/mm3 (1.40-6.50); PLATELET COUNT 153 K/mm3 (130-400); RED BLOOD COUNT 3.22 M/mm3 (4.20-5.60)
[2023-11-30 13:59] LABS: ALBUMIN 3.7 g/dL (3.4-4.8)
[2023-11-30 14:01] LABS: CALCIUM 9.9 mg/dL (8.3-10.5)
[2023-11-30 14:04] LABS: TOTAL BILIRUBIN 0.5 mg/dL (0.2-1.2)
[2023-11-30 14:09] LABS: LYMPH# 1.54 K/mm3 (1.50-4.00)
== END ==
LOC: LAB 13:37
PROVIDERS: Internal Medicine
DX: C81.99 Hodgkin lymphoma, unspecified, extranodal and solid organ sites (principal)

== ENCOUNTER → 2023-12-07 | Outpatient (CLI) | payer MEDICARE, BC ==
[2023-12-07 13:48] LABS: BASO # 0.08 K/mm3 (0.02-0.10); EOS # 0.02 K/mm3 (0.04-0.40); EOS % 0.3 % (0.0-4.0); HEMATOCRIT 29.6 % (42.0-52.0); HEMOGLOBIN 9.8 g/dL (13.5-18.0); LYMPH# 1.47 K/mm3 (1.50-4.00); MEAN CELL VOLUME 101 fl (78-100); MEAN CORPUSCULAR HEMOGLOBIN 33 pg (27-31); MEAN CORPUSCULAR HGB CONC 33 g/dL (33-37); MEAN PLATELET VOLUME 10.1 fl (7.4-10.4); MONO # 0.31 K/mm3 (0.20-0.80); NEU # 4.11 K/mm3 (1.40-6.50); PLATELET COUNT 341 K/mm3 (130-400); RED BLOOD COUNT 2.94 M/mm3 (4.20-5.60); WHITE BLOOD COUNT 6.1 K/mm3 (4.8-10.8)
[2023-12-07 13:55] LABS: ALBUMIN 3.8 g/dL (3.4-4.8)
[2023-12-07 13:57] LABS: CALCIUM 10.7 mg/dL (8.3-10.5)
[2023-12-07 13:58] LABS: TOTAL PROTEIN 5.9 g/dL (6.2-8.1)
[2023-12-07 14:00] LABS: TOTAL BILIRUBIN 0.5 mg/dL (0.2-1.2)
== END ==
LOC: LAB 13:38
PROVIDERS: Internal Medicine
DX: C81.99 Hodgkin lymphoma, unspecified, extranodal and solid organ sites (principal)

== ENCOUNTER → 2023-12-21 | Outpatient (CLI) | payer MEDICARE, BC ==
[2023-12-21 13:48] LABS: HEMATOCRIT 30.5 % (42.0-52.0); HEMOGLOBIN 10.1 g/dL (13.5-18.0); MEAN CELL VOLUME 102 fl (78-100); MEAN CORPUSCULAR HEMOGLOBIN 34 pg (27-31); MEAN CORPUSCULAR HGB CONC 33 g/dL (33-37); MEAN PLATELET VOLUME 9.9 fl (7.4-10.4); PLATELET COUNT 288 K/mm3 (130-400); RED CELL DISTRIBUTION WIDTH 14.6 % (11.5-14.5); WHITE BLOOD COUNT 8.2 K/mm3 (4.8-10.8)
[2023-12-21 14:00] LABS: CALCIUM 9.3 mg/dL (8.3-10.5)
[2023-12-21 14:01] LABS: TOTAL PROTEIN 6.2 g/dL (6.2-8.1)
[2023-12-21 14:03] LABS: TOTAL BILIRUBIN 0.4 mg/dL (0.2-1.2)
[2023-12-21 14:10] LABS: BAND 6 % (0-10); LYMPHOCYTE 17 % (20-51); MONOCYTE 6 % (3-10); NEUTROPHILS 69 % (42-75)
[2023-12-21 14:11] LABS: HYPOCHROMIA 1+; SCHISTOCYTES 1+
== END ==
LOC: LAB 13:35
PROVIDERS: Internal Medicine
DX: C81.99 Hodgkin lymphoma, unspecified, extranodal and solid organ sites (principal)

== ENCOUNTER → 2023-12-28 | Outpatient (CLI) | payer MEDICARE, BC ==
[2023-12-28 13:50] LABS: BASO # 0.06 K/mm3 (0.02-0.10); HEMATOCRIT 31.6 % (42.0-52.0); HEMOGLOBIN 10.5 g/dL (13.5-18.0); LYMPH# 0.73 K/mm3 (1.50-4.00); MEAN CELL VOLUME 100 fl (78-100); MEAN CORPUSCULAR HEMOGLOBIN 33 pg (27-31); MEAN CORPUSCULAR HGB CONC 33 g/dL (33-37); MEAN PLATELET VOLUME 10.4 fl (7.4-10.4); MONO # 0.85 K/mm3 (0.20-0.80); NEU # 7.85 K/mm3 (1.40-6.50); PLATELET COUNT 238 K/mm3 (130-400); RED BLOOD COUNT 3.16 M/mm3 (4.20-5.60); RED CELL DISTRIBUTION WIDTH 14.3 % (11.5-14.5); WHITE BLOOD COUNT 9.8 K/mm3 (4.8-10.8)
== END ==
LOC: LAB 13:32
PROVIDERS: Internal Medicine
DX: C81.99 Hodgkin lymphoma, unspecified, extranodal and solid organ sites (principal)

== ENCOUNTER → 2024-01-18 | Outpatient (CLI) | payer MEDICARE, BC ==
[2024-01-18 14:04] LABS: BASO # 0.04 K/mm3 (0.02-0.10); EOS # 0.04 K/mm3 (0.04-0.40); EOS % 0.6 % (0.0-4.0); HEMATOCRIT 30.1 % (42.0-52.0); HEMOGLOBIN 9.9 g/dL (13.5-18.0); LYMPH# 1.27 K/mm3 (1.50-4.00); MEAN CELL VOLUME 100 fl (78-100); MEAN CORPUSCULAR HEMOGLOBIN 33 pg (27-31); MEAN CORPUSCULAR HGB CONC 33 g/dL (33-37); MEAN PLATELET VOLUME 10.7 fl (7.4-10.4); MONO # 0.18 K/mm3 (0.20-0.80); PLATELET COUNT 257 K/mm3 (130-400); RED BLOOD COUNT 3.01 M/mm3 (4.20-5.60); RED CELL DISTRIBUTION WIDTH 13.5 % (11.5-14.5); WHITE BLOOD COUNT 6.8 K/mm3 (4.8-10.8)
[2024-01-18 14:08] LABS: ALBUMIN 3.8 g/dL (3.4-4.8)
[2024-01-18 14:10] LABS: CALCIUM 10.4 mg/dL (8.3-10.5)
[2024-01-18 14:13] LABS: TOTAL BILIRUBIN 0.7 mg/dL (0.2-1.2)
== END ==
LOC: LAB 13:48
PROVIDERS: Internal Medicine
DX: C81.99 Hodgkin lymphoma, unspecified, extranodal and solid organ sites (principal)

== ENCOUNTER → 2024-01-25 | Outpatient (CLI) | payer MEDICARE, BC ==
[2024-01-25 13:47] LABS: BASO # 0.13 K/mm3 (0.02-0.10); HEMATOCRIT 31.4 % (42.0-52.0); HEMOGLOBIN 10.5 g/dL (13.5-18.0); LYMPH# 0.77 K/mm3 (1.50-4.00); MEAN CELL VOLUME 100 fl (78-100); MEAN CORPUSCULAR HEMOGLOBIN 33 pg (27-31); MEAN CORPUSCULAR HGB CONC 33 g/dL (33-37); MEAN PLATELET VOLUME 10.2 fl (7.4-10.4); MONO # 1.37 K/mm3 (0.20-0.80); NEU # 7.01 K/mm3 (1.40-6.50); PLATELET COUNT 264 K/mm3 (130-400); RED BLOOD COUNT 3.15 M/mm3 (4.20-5.60); RED CELL DISTRIBUTION WIDTH 14.2 % (11.5-14.5); WHITE BLOOD COUNT 9.6 K/mm3 (4.8-10.8)
[2024-01-25 13:50] LABS: CALCIUM 9.7 mg/dL (8.3-10.5)
[2024-01-25 13:51] LABS: TOTAL PROTEIN 6.4 g/dL (6.2-8.1)
[2024-01-25 13:53] LABS: TOTAL BILIRUBIN 0.4 mg/dL (0.2-1.2)
== END ==
LOC: LAB 13:35
PROVIDERS: Internal Medicine
DX: C81.99 Hodgkin lymphoma, unspecified, extranodal and solid organ sites (principal)

== ENCOUNTER → 2024-02-01 | Outpatient (CLI) | payer MEDICARE, BC ==
[2024-02-01 13:52] LABS: BASO # 0.05 K/mm3 (0.02-0.10); EOS # 0.02 K/mm3 (0.04-0.40); EOS % 0.3 % (0.0-4.0); HEMATOCRIT 27.8 % (42.0-52.0); HEMOGLOBIN 9.4 g/dL (13.5-18.0); LYMPH# 1.04 K/mm3 (1.50-4.00); MEAN CELL VOLUME 99 fl (78-100); MEAN CORPUSCULAR HEMOGLOBIN 34 pg (27-31); MEAN CORPUSCULAR HGB CONC 34 g/dL (33-37); MEAN PLATELET VOLUME 10.5 fl (7.4-10.4); MONO # 0.19 K/mm3 (0.20-0.80); NEU # 5.41 K/mm3 (1.40-6.50); PLATELET COUNT 238 K/mm3 (130-400); RED BLOOD COUNT 2.81 M/mm3 (4.20-5.60); WHITE BLOOD COUNT 6.8 K/mm3 (4.8-10.8)
[2024-02-01 14:13] LABS: ALBUMIN 3.9 g/dL (3.4-4.8)
[2024-02-01 14:14] LABS: CALCIUM 9.7 mg/dL (8.3-10.5)
[2024-02-01 14:16] LABS: TOTAL PROTEIN 6.1 g/dL (6.2-8.1)
[2024-02-01 14:17] LABS: TOTAL BILIRUBIN 0.7 mg/dL (0.2-1.2)
== END ==
LOC: LAB 13:34
PROVIDERS: Internal Medicine
DX: C81.99 Hodgkin lymphoma, unspecified, extranodal and solid organ sites (principal)

== ENCOUNTER → 2024-02-16 | Outpatient (CLI) | payer MEDICARE, BC ==
[2024-02-16 14:33] LABS: BASO # 0.05 K/mm3 (0.02-0.10); EOS # 0.02 K/mm3 (0.04-0.40); EOS % 0.3 % (0.0-4.0); HEMATOCRIT 27.3 % (42.0-52.0); HEMOGLOBIN 9.1 g/dL (13.5-18.0); LYMPH# 1.15 K/mm3 (1.50-4.00); MEAN CELL VOLUME 101 fl (78-100); MEAN CORPUSCULAR HEMOGLOBIN 34 pg (27-31); MEAN CORPUSCULAR HGB CONC 33 g/dL (33-37); MONO # 0.45 K/mm3 (0.20-0.80); NEU # 4.07 K/mm3 (1.40-6.50); PLATELET COUNT 282 K/mm3 (130-400); RED CELL DISTRIBUTION WIDTH 14.2 % (11.5-14.5); WHITE BLOOD COUNT 6.2 K/mm3 (4.8-10.8)
[2024-02-16 14:41] LABS: ALBUMIN 3.9 g/dL (3.4-4.8)
[2024-02-16 14:43] LABS: CALCIUM 9.7 mg/dL (8.3-10.5)
[2024-02-16 14:44] LABS: TOTAL PROTEIN 6.1 g/dL (6.2-8.1)
[2024-02-16 14:46] LABS: TOTAL BILIRUBIN 0.5 mg/dL (0.2-1.2)
== END ==
LOC: LAB 14:20
PROVIDERS: Internal Medicine
DX: C81.99 Hodgkin lymphoma, unspecified, extranodal and solid organ sites (principal)

== ENCOUNTER → 2024-02-22 | Outpatient (CLI) | payer MEDICARE, BC ==
[2024-02-22 13:52] LABS: HEMATOCRIT 28.9 % (42.0-52.0); HEMOGLOBIN 9.5 g/dL (13.5-18.0); MEAN CELL VOLUME 102 fl (78-100); MEAN CORPUSCULAR HEMOGLOBIN 34 pg (27-31); MEAN CORPUSCULAR HGB CONC 33 g/dL (33-37); PLATELET COUNT 242 K/mm3 (130-400); RED BLOOD COUNT 2.84 M/mm3 (4.20-5.60); RED CELL DISTRIBUTION WIDTH 15.1 % (11.5-14.5); WHITE BLOOD COUNT 6.7 K/mm3 (4.8-10.8)
[2024-02-22 14:01] LABS: CALCIUM 9.5 mg/dL (8.3-10.5)
[2024-02-22 14:02] LABS: TOTAL PROTEIN 6.2 g/dL (6.2-8.1)
[2024-02-22 14:04] LABS: TOTAL BILIRUBIN 0.4 mg/dL (0.2-1.2)
[2024-02-22 14:49] LABS: BAND 4 % (0-10); LYMPHOCYTE 9 % (20-51); MONOCYTE 14 % (3-10); NEUTROPHILS 73 % (42-75)
== END ==
LOC: LAB 13:40
PROVIDERS: Internal Medicine
DX: C81.99 Hodgkin lymphoma, unspecified, extranodal and solid organ sites (principal)

== ENCOUNTER → 2024-03-14 | Outpatient (CLI) | payer MEDICARE, BC ==
[2024-03-14 13:52] LABS: BASO # 0.07 K/mm3 (0.02-0.10); EOS # 0.02 K/mm3 (0.04-0.40); EOS % 0.2 % (0.0-4.0); HEMATOCRIT 27.7 % (42.0-52.0); HEMOGLOBIN 9.1 g/dL (13.5-18.0); MEAN CELL VOLUME 100 fl (78-100); MEAN CORPUSCULAR HEMOGLOBIN 33 pg (27-31); MEAN CORPUSCULAR HGB CONC 33 g/dL (33-37); MEAN PLATELET VOLUME 10.5 fl (7.4-10.4); MONO # 0.25 K/mm3 (0.20-0.80); NEU # 8.59 K/mm3 (1.40-6.50); PLATELET COUNT 223 K/mm3 (130-400); RED BLOOD COUNT 2.76 M/mm3 (4.20-5.60); RED CELL DISTRIBUTION WIDTH 14.6 % (11.5-14.5)
[2024-03-14 14:27] LABS: ALBUMIN 3.8 g/dL (3.4-4.8)
[2024-03-14 14:29] LABS: CALCIUM 9.4 mg/dL (8.3-10.5)
[2024-03-14 14:32] LABS: TOTAL BILIRUBIN 0.5 mg/dL (0.2-1.2)
== END ==
LOC: LAB 13:33
PROVIDERS: Internal Medicine
DX: C81.99 Hodgkin lymphoma, unspecified, extranodal and solid organ sites (principal)

== ENCOUNTER → 2024-03-21 | Outpatient (CLI) | payer MEDICARE, BC ==
[2024-03-21 13:43] LABS: BASO # 0.08 K/mm3 (0.02-0.10); HEMATOCRIT 30.9 % (42.0-52.0); LYMPH# 0.64 K/mm3 (1.50-4.00); MEAN CELL VOLUME 100 fl (78-100); MEAN CORPUSCULAR HEMOGLOBIN 33 pg (27-31); MEAN CORPUSCULAR HGB CONC 32 g/dL (33-37); MEAN PLATELET VOLUME 9.9 fl (7.4-10.4); MONO # 1.09 K/mm3 (0.20-0.80); NEU # 4.64 K/mm3 (1.40-6.50); PLATELET COUNT 254 K/mm3 (130-400); RED BLOOD COUNT 3.08 M/mm3 (4.20-5.60); RED CELL DISTRIBUTION WIDTH 15.5 % (11.5-14.5); WHITE BLOOD COUNT 6.6 K/mm3 (4.8-10.8)
[2024-03-21 13:50] LABS: ALBUMIN 4.1 g/dL (3.4-4.8)
[2024-03-21 13:51] LABS: CALCIUM 10.3 mg/dL (8.3-10.5)
[2024-03-21 13:53] LABS: TOTAL PROTEIN 6.3 g/dL (6.2-8.1)
[2024-03-21 13:54] LABS: TOTAL BILIRUBIN 0.4 mg/dL (0.2-1.2)
== END ==
LOC: LAB 13:32
PROVIDERS: Internal Medicine
DX: C81.99 Hodgkin lymphoma, unspecified, extranodal and solid organ sites (principal)

== ENCOUNTER → 2024-03-28 | Outpatient (CLI) | payer MEDICARE, BC ==
[2024-03-28 13:48] LABS: BASO # 0.04 K/mm3 (0.02-0.10); EOS # 0.05 K/mm3 (0.04-0.40); EOS % 0.8 % (0.0-4.0); HEMATOCRIT 29.2 % (42.0-52.0); HEMOGLOBIN 9.6 g/dL (13.5-18.0); MEAN CELL VOLUME 100 fl (78-100); MEAN CORPUSCULAR HEMOGLOBIN 33 pg (27-31); MEAN CORPUSCULAR HGB CONC 33 g/dL (33-37); MEAN PLATELET VOLUME 10.1 fl (7.4-10.4); MONO # 0.18 K/mm3 (0.20-0.80); NEU # 4.65 K/mm3 (1.40-6.50); PLATELET COUNT 224 K/mm3 (130-400); RED BLOOD COUNT 2.93 M/mm3 (4.20-5.60); RED CELL DISTRIBUTION WIDTH 14.6 % (11.5-14.5)
[2024-03-28 13:55] LABS: CALCIUM 11.2 mg/dL (8.3-10.5)
[2024-03-28 13:56] LABS: TOTAL PROTEIN 6.1 g/dL (6.2-8.1)
[2024-03-28 13:58] LABS: TOTAL BILIRUBIN 0.6 mg/dL (0.2-1.2)
== END ==
LOC: LAB 13:36
PROVIDERS: Internal Medicine
DX: C81.99 Hodgkin lymphoma, unspecified, extranodal and solid organ sites (principal)

== ENCOUNTER → 2024-04-04 | Outpatient (CLI) | payer MEDICARE, BC ==
[2024-04-04 13:49] LABS: BASO # 0.06 K/mm3 (0.02-0.10); HEMATOCRIT 31.1 % (42.0-52.0); HEMOGLOBIN 10.1 g/dL (13.5-18.0); LYMPH# 0.63 K/mm3 (1.50-4.00); MEAN CELL VOLUME 100 fl (78-100); MEAN CORPUSCULAR HEMOGLOBIN 33 pg (27-31); MEAN CORPUSCULAR HGB CONC 33 g/dL (33-37); MEAN PLATELET VOLUME 10.4 fl (7.4-10.4); NEU # 4.56 K/mm3 (1.40-6.50); PLATELET COUNT 248 K/mm3 (130-400); RED BLOOD COUNT 3.11 M/mm3 (4.20-5.60); RED CELL DISTRIBUTION WIDTH 15.7 % (11.5-14.5); WHITE BLOOD COUNT 6.5 K/mm3 (4.8-10.8)
[2024-04-04 13:56] LABS: CALCIUM 9.8 mg/dL (8.3-10.5)
[2024-04-04 13:57] LABS: TOTAL PROTEIN 6.4 g/dL (6.2-8.1)
[2024-04-04 13:59] LABS: TOTAL BILIRUBIN 0.5 mg/dL (0.2-1.2)
== END ==
LOC: LAB 13:36
PROVIDERS: Internal Medicine
DX: C81.99 Hodgkin lymphoma, unspecified, extranodal and solid organ sites (principal)

== ENCOUNTER → 2024-04-11 | Outpatient (CLI) | payer MEDICARE, BC ==
[2024-04-11 13:54] LABS: TOTAL PROTEIN 6.2 g/dL (6.2-8.1)
[2024-04-11 13:55] LABS: BASO # 0.03 K/mm3 (0.02-0.10); EOS # 0.03 K/mm3 (0.04-0.40); EOS % 0.8 % (0.0-4.0); HEMATOCRIT 30.2 % (42.0-52.0); HEMOGLOBIN 9.8 g/dL (13.5-18.0); LYMPH# 0.84 K/mm3 (1.50-4.00); MEAN CELL VOLUME 99 fl (78-100); MEAN CORPUSCULAR HEMOGLOBIN 32 pg (27-31); MEAN CORPUSCULAR HGB CONC 33 g/dL (33-37); MONO # 0.11 K/mm3 (0.20-0.80); NEU # 2.91 K/mm3 (1.40-6.50); PLATELET COUNT 204 K/mm3 (130-400); RED BLOOD COUNT 3.04 M/mm3 (4.20-5.60)
[2024-04-11 13:56] LABS: TOTAL BILIRUBIN 0.6 mg/dL (0.2-1.2)
== END ==
LOC: LAB 13:34
PROVIDERS: Internal Medicine
DX: C81.99 Hodgkin lymphoma, unspecified, extranodal and solid organ sites (principal)

== ENCOUNTER → 2024-04-23 | Outpatient (CLI) | payer MEDICARE, BC ==
[2024-04-23 14:02] LABS: BASO # 0.04 K/mm3 (0.02-0.10); EOS # 0.01 K/mm3 (0.04-0.40); EOS % 0.2 % (0.0-4.0); HEMOGLOBIN 10.1 g/dL (13.5-18.0); LYMPH# 1.03 K/mm3 (1.50-4.00); MEAN CELL VOLUME 100 fl (78-100); MEAN CORPUSCULAR HEMOGLOBIN 33 pg (27-31); MEAN CORPUSCULAR HGB CONC 33 g/dL (33-37); MEAN PLATELET VOLUME 9.4 fl (7.4-10.4); NEU # 2.58 K/mm3 (1.40-6.50); PLATELET COUNT 209 K/mm3 (130-400); WHITE BLOOD COUNT 4.4 K/mm3 (4.8-10.8)
[2024-04-23 14:07] LABS: ALBUMIN 3.9 g/dL (3.4-4.8)
[2024-04-23 14:08] LABS: CALCIUM 9.6 mg/dL (8.3-10.5)
[2024-04-23 14:09] LABS: TOTAL PROTEIN 6.2 g/dL (6.2-8.1)
[2024-04-23 14:11] LABS: TOTAL BILIRUBIN 0.5 mg/dL (0.2-1.2)
== END ==
LOC: LAB 13:50
PROVIDERS: Internal Medicine
DX: C81.99 Hodgkin lymphoma, unspecified, extranodal and solid organ sites (principal)

== ENCOUNTER → 2024-05-01 | Outpatient (CLI) | payer MEDICARE, BC ==
[2024-05-01 13:03] LABS: HEMATOCRIT 32.2 % (42.0-52.0); HEMOGLOBIN 10.4 g/dL (13.5-18.0); MEAN CELL VOLUME 101 fl (78-100); MEAN CORPUSCULAR HEMOGLOBIN 33 pg (27-31); MEAN CORPUSCULAR HGB CONC 32 g/dL (33-37); MEAN PLATELET VOLUME 9.3 fl (7.4-10.4); PLATELET COUNT 252 K/mm3 (130-400); RED BLOOD COUNT 3.19 M/mm3 (4.20-5.60); RED CELL DISTRIBUTION WIDTH 16.1 % (11.5-14.5); WHITE BLOOD COUNT 2.1 K/mm3 (4.8-10.8)
[2024-05-01 13:10] LABS: TOTAL PROTEIN 6.2 g/dL (6.2-8.1)
[2024-05-01 13:12] LABS: TOTAL BILIRUBIN 0.5 mg/dL (0.2-1.2)
[2024-05-01 13:39] LABS: NEUTROPHILS 43 % (42-75)
[2024-05-01 13:40] LABS: LYMPHOCYTE 35 % (20-51); MONOCYTE 21 % (3-10); POLYCHROMASIA 1+
== END ==
LOC: LAB 12:39
PROVIDERS: Internal Medicine
DX: C81.99 Hodgkin lymphoma, unspecified, extranodal and solid organ sites (principal)

== ENCOUNTER → 2024-05-07 | Outpatient (CLI) | payer MEDICARE, BC ==
[2024-05-07 14:08] LABS: BASO # 0.02 K/mm3 (0.02-0.10); EOS # 0.08 K/mm3 (0.04-0.40); EOS % 1.5 % (0.0-4.0); HEMOGLOBIN 11.1 g/dL (13.5-18.0); LYMPH# 2.54 K/mm3 (1.50-4.00); MEAN CELL VOLUME 101 fl (78-100); MEAN CORPUSCULAR HEMOGLOBIN 33 pg (27-31); MEAN CORPUSCULAR HGB CONC 33 g/dL (33-37); MONO # 0.55 K/mm3 (0.20-0.80); NEU # 2.18 K/mm3 (1.40-6.50); PLATELET COUNT 239 K/mm3 (130-400); RED BLOOD COUNT 3.37 M/mm3 (4.20-5.60); RED CELL DISTRIBUTION WIDTH 16.4 % (11.5-14.5); WHITE BLOOD COUNT 5.4 K/mm3 (4.8-10.8)
[2024-05-07 14:17] LABS: ALBUMIN 3.9 g/dL (3.4-4.8)
[2024-05-07 14:19] LABS: CALCIUM 9.8 mg/dL (8.3-10.5)
[2024-05-07 14:20] LABS: TOTAL PROTEIN 6.2 g/dL (6.2-8.1)
[2024-05-07 14:22] LABS: TOTAL BILIRUBIN 0.5 mg/dL (0.2-1.2)
== END ==
LOC: LAB 13:53
PROVIDERS: Internal Medicine
DX: C81.99 Hodgkin lymphoma, unspecified, extranodal and solid organ sites (principal)

== ENCOUNTER → 2024-05-14 | Outpatient (CLI) | payer MEDICARE, BC ==
[2024-05-14 14:53] LABS: BASO # 0.01 K/mm3 (0.02-0.10); EOS # 0.08 K/mm3 (0.04-0.40); EOS % 1.8 % (0.0-4.0); HEMATOCRIT 39.9 % (42.0-52.0); HEMOGLOBIN 12.6 g/dL (13.5-18.0); LYMPH# 1.65 K/mm3 (1.50-4.00); MEAN CELL VOLUME 103 fl (78-100); MEAN CORPUSCULAR HEMOGLOBIN 32 pg (27-31); MEAN CORPUSCULAR HGB CONC 32 g/dL (33-37); MEAN PLATELET VOLUME 9.4 fl (7.4-10.4); MONO # 0.76 K/mm3 (0.20-0.80); NEU # 1.95 K/mm3 (1.40-6.50); PLATELET COUNT 205 K/mm3 (130-400); RED BLOOD COUNT 3.89 M/mm3 (4.20-5.60); RED CELL DISTRIBUTION WIDTH 15.8 % (11.5-14.5); WHITE BLOOD COUNT 4.5 K/mm3 (4.8-10.8)
[2024-05-14 14:58] LABS: ALBUMIN 4.2 g/dL (3.4-4.8)
[2024-05-14 14:59] LABS: CALCIUM 9.6 mg/dL (8.3-10.5)
[2024-05-14 15:00] LABS: TOTAL PROTEIN 6.8 g/dL (6.2-8.1)
[2024-05-14 15:02] LABS: TOTAL BILIRUBIN 0.6 mg/dL (0.2-1.2)
== END ==
LOC: LAB 14:41
PROVIDERS: Internal Medicine
DX: C81.99 Hodgkin lymphoma, unspecified, extranodal and solid organ sites (principal)

== ENCOUNTER → 2024-05-21 | Outpatient (CLI) | payer MEDICARE, BC ==
[2024-05-21 13:50] LABS: BASO # 0.01 K/mm3 (0.02-0.10); EOS # 0.04 K/mm3 (0.04-0.40); EOS % 0.8 % (0.0-4.0); HEMATOCRIT 36.3 % (42.0-52.0); HEMOGLOBIN 11.9 g/dL (13.5-18.0); LYMPH# 1.51 K/mm3 (1.50-4.00); MEAN CELL VOLUME 101 fl (78-100); MEAN CORPUSCULAR HEMOGLOBIN 33 pg (27-31); MEAN CORPUSCULAR HGB CONC 33 g/dL (33-37); MONO # 0.45 K/mm3 (0.20-0.80); NEU # 2.74 K/mm3 (1.40-6.50); PLATELET COUNT 223 K/mm3 (130-400); RED BLOOD COUNT 3.58 M/mm3 (4.20-5.60); RED CELL DISTRIBUTION WIDTH 15.1 % (11.5-14.5); WHITE BLOOD COUNT 4.8 K/mm3 (4.8-10.8)
[2024-05-21 13:58] LABS: ALBUMIN 4.1 g/dL (3.4-4.8)
[2024-05-21 14:00] LABS: TOTAL PROTEIN 7.2 g/dL (6.2-8.1)
[2024-05-21 14:02] LABS: TOTAL BILIRUBIN 0.5 mg/dL (0.2-1.2)
== END ==
LOC: LAB 13:39
PROVIDERS: Internal Medicine
DX: C81.99 Hodgkin lymphoma, unspecified, extranodal and solid organ sites (principal)

== ENCOUNTER → 2024-05-28 | Outpatient (CLI) | payer MEDICARE, BC ==
[2024-05-28 14:03] LABS: BASO # 0.03 K/mm3 (0.02-0.10); EOS # 0.06 K/mm3 (0.04-0.40); EOS % 1.3 % (0.0-4.0); HEMATOCRIT 36.5 % (42.0-52.0); LYMPH# 1.57 K/mm3 (1.50-4.00); MEAN CELL VOLUME 101 fl (78-100); MEAN CORPUSCULAR HEMOGLOBIN 33 pg (27-31); MEAN CORPUSCULAR HGB CONC 33 g/dL (33-37); MEAN PLATELET VOLUME 9.9 fl (7.4-10.4); MONO # 0.67 K/mm3 (0.20-0.80); NEU # 2.15 K/mm3 (1.40-6.50); PLATELET COUNT 259 K/mm3 (130-400); RED CELL DISTRIBUTION WIDTH 15.3 % (11.5-14.5); WHITE BLOOD COUNT 4.5 K/mm3 (4.8-10.8)
[2024-05-28 14:12] LABS: CALCIUM 9.6 mg/dL (8.3-10.5)
[2024-05-28 14:13] LABS: TOTAL PROTEIN 6.9 g/dL (6.2-8.1)
[2024-05-28 14:15] LABS: TOTAL BILIRUBIN 0.6 mg/dL (0.2-1.2)
== END ==
LOC: LAB 13:40
PROVIDERS: Internal Medicine
DX: C81.99 Hodgkin lymphoma, unspecified, extranodal and solid organ sites (principal)

== ENCOUNTER → 2024-06-18 | Outpatient (CLI) | payer MEDICARE, BC ==
[2024-06-18 14:11] LABS: BASO # 0.01 K/mm3 (0.02-0.10); EOS # 0.06 K/mm3 (0.04-0.40); EOS % 1.2 % (0.0-4.0); HEMATOCRIT 36.8 % (42.0-52.0); HEMOGLOBIN 12.5 g/dL (13.5-18.0); MEAN CELL VOLUME 99 fl (78-100); MEAN CORPUSCULAR HEMOGLOBIN 34 pg (27-31); MEAN CORPUSCULAR HGB CONC 34 g/dL (33-37); MEAN PLATELET VOLUME 10.2 fl (7.4-10.4); MONO # 0.72 K/mm3 (0.20-0.80); NEU # 2.61 K/mm3 (1.40-6.50); PLATELET COUNT 227 K/mm3 (130-400); RED BLOOD COUNT 3.72 M/mm3 (4.20-5.60); RED CELL DISTRIBUTION WIDTH 14.3 % (11.5-14.5); WHITE BLOOD COUNT 4.8 K/mm3 (4.8-10.8)
[2024-06-18 14:16] LABS: CALCIUM 9.8 mg/dL (8.3-10.5)
[2024-06-18 14:19] LABS: TOTAL BILIRUBIN 0.6 mg/dL (0.2-1.2)
== END ==
LOC: LAB 13:55
PROVIDERS: Internal Medicine
DX: C81.99 Hodgkin lymphoma, unspecified, extranodal and solid organ sites (principal)

== ENCOUNTER → 2024-07-11 | Outpatient (CLI) | payer MEDICARE, BC ==
[2024-07-11 09:19] LABS: BASO # 0.01 K/mm3 (0.02-0.10); EOS # 0.02 K/mm3 (0.04-0.40); EOS % 0.4 % (0.0-4.0); HEMATOCRIT 41.1 % (42.0-52.0); HEMOGLOBIN 13.7 g/dL (13.5-18.0); LYMPH# 1.08 K/mm3 (1.50-4.00); MEAN CELL VOLUME 100 fl (78-100); MEAN CORPUSCULAR HEMOGLOBIN 33 pg (27-31); MEAN CORPUSCULAR HGB CONC 33 g/dL (33-37); MEAN PLATELET VOLUME 9.9 fl (7.4-10.4); MONO # 0.67 K/mm3 (0.20-0.80); NEU # 3.15 K/mm3 (1.40-6.50); PLATELET COUNT 239 K/mm3 (130-400); RED BLOOD COUNT 4.12 M/mm3 (4.20-5.60); RED CELL DISTRIBUTION WIDTH 14.5 % (11.5-14.5); WHITE BLOOD COUNT 4.9 K/mm3 (4.8-10.8)
[2024-07-11 09:51] LABS: ALBUMIN 4.2 g/dL (3.4-4.8)
[2024-07-11 09:52] LABS: CALCIUM 10.4 mg/dL (8.3-10.5)
[2024-07-11 09:53] LABS: TOTAL PROTEIN 7.5 g/dL (6.2-8.1)
[2024-07-11 09:55] LABS: TOTAL BILIRUBIN 0.7 mg/dL (0.2-1.2)
== END ==
LOC: LAB 09:02
PROVIDERS: Internal Medicine
DX: Z12.5 Encounter for screening for malignant neoplasm of prostate (principal); C81.99 Hodgkin lymphoma, unspecified, extranodal and solid organ sites; I10 Essential (primary) hypertension; E78.2 Mixed hyperlipidemia; R73.03 Prediabetes